=== PATIENT | female | born 1995 | race African-American/Black ===

== ENCOUNTER 2019-09-26 10:12 | Emergency (ER) | payer OTHER ==
[~2019-09-26] VITALS: Ht 165.1 cm; Wt 88.5 kg
[2019-09-26 10:17] VITALS: BP 132/78
[2019-09-26] MEDS ORDERED: HYDROcodone/APAP 5/325MG 1 TAB TABLET PO STA (10:32)
[2019-09-26] MEDS ORDERED: KETOROLAC 30 MG/ML VIAL. IM STA (10:32)
[2019-09-26] MEDS ORDERED: NEOMY/BACITR/POLYMYXIN OINT PACKET. TP STA (10:40)
--- NOTE | 2019-09-26 10:42 | PHYS DOC ---
Adult General Chief Complaint Chief Complaint: FOOT INJURY PAIN HPI HPI Patient is a 24 year old female who presents after she woke up this morning and tripped and fell down 4 concrete steps. The patient rates her pain as 8 out of 10 in severity. The patient has bilateral abrasions to her knee. Patient also states it hurts when she walks. The patient has tenderness to her left, and right knee. The patient also has tenderness in her lower right leg. Not taking any pain medicine prior to arrival. Review of Systems Review of Systems Constitutional: Denies fever or chills [] Eyes: Denies change in visual acuity, redness, or eye pain [] HENT: Denies nasal congestion or sore throat [] Respiratory: Denies cough or shortness of breath [] Cardiovascular: No additional information not addressed in HPI [] GI: Denies abdominal pain, nausea, vomiting, bloody stools or diarrhea [] : Denies dysuria or hematuria [] Musculoskeletal: Reports bilateral leg pain. Integument: Reports abrasions to bilateral knees. Neurologic: Denies headache, focal weakness or sensory changes [] Endocrine: Denies polyuria or polydipsia [] Complete systems were reviewed and found to be within normal limits, except as documented in this note. Current Medications Current Medications Current Medications Medications (Trade) Dose Ordered Sig/Cedric Start Time Stop Time Status Last Admin Dose Admin Acetaminophen/ Hydrocodone Bitart (Lortab 5/325) 1 tab 1X STAT 09/26/19 10:32 09/26/19 10:37 DC 09/26/19 11:06 1 TAB Ketorolac Tromethamine (Toradol 30mg Vial) 30 mg 1X STAT 09/26/19 10:32 09/26/19 11:11 DC 09/26/19 11:12 30 MG Neomycin/ Polymyxin/ Bacitracin (Triple Antibiotic Ointment) 1 pkt 1X STAT 09/26/19 10:40 09/26/19 10:41 DC 09/26/19 11:06 1 PKT Allergies Allergies Allergies Coded Allergies Type Severity Reaction Last Updated Verified coconut Allergy Intermediate 09/26/19 Yes Physical Exam Physical Exam Constitutional: Well developed, well nourished, no acute distress, non-toxic appearance. [] HENT: Normocephalic, atraumatic, bilateral external ears normal, oropharynx moist, no oral exudates, nose normal. [] Eyes: PERRLA, EOMI, conjunctiva normal, no discharge. [] Neck: Normal range of motion, no tenderness, supple, no stridor. [] Skin: Warm, dry, no erythema, no rash. [] Back: No tenderness, no CVA tenderness. [] Extremities: Tenderness to bilateral knees and tenderness to lower right leg, ankle, and foot diffusely. No edema. Pedal pulses are 2/4 bilateral. Neurologic: Alert and oriented X 3, normal motor function, normal sensory function, no focal deficits noted. [] Psychologic: Affect normal, judgement normal, mood normal. [] Current Patient Data Vital Signs Vital Signs Date Time Temp Pulse Resp B/P (MAP) Pulse Ox O2 Delivery O2 Flow Rate FiO2 09/26/19 11:06 17 97 Room Air 09/26/19 10:17 98.0 77 132/78 (96) 98.0 Lab Values Laboratory Tests Test 09/26/19 11:04 POC Urine HCG, Qualitative Hcg negative (Negative) EKG EKG [] Radiology/Procedures Radiology/Procedures [][facility] [address] [place] [address] IMAGING REPORT Signed PATIENT: ATIYA DUQUE ACCOUNT: [id number] : 1995 LOCATION: ER AGE: 24 SEX: F EXAM STATUS: REG ER ORD. PHYSICIAN: LORRAINE CHRISTY APRN REASON: fall down concrete steps PROCEDURE: ANKLE RIGHT 3V EXAM: 1. Bilateral knees 3 views. 2. Right tibia/fibula 2 views. 3. Right ankle 3 views. 4. Right foot 3 views. HISTORY: Fall. COMPARISON: None. FINDINGS: No fractures are appreciated at the left knee. Joint spaces and alignment are maintained. There is no joint effusion. No fractures are appreciated at the right knee. Joint spaces and alignment are maintained. There is no joint effusion. No fractures are appreciated within the right tibia/fibula, right ankle or right foot. Joint spaces and alignment are maintained. IMPRESSION: 1. No fracture or malalignment throughout. Electronically signed by: Izzy Driver MD (09/26/2019 11:22 AM) [facility] DICTATED and SIGNED BY: CARLENE DRIVER MD DATE: 09/26/19 1122 Course & Med Decision Making Course & Med Decision Making Pertinent Labs and Imaging studies reviewed. (See chart for details) Will give pain medication, imaging, and have nursing put Neosporin on and dress wounds. Imaging is negative. Will have nursing dress wounds and then will discharge. Dragon Disclaimer Dragon Disclaimer This electronic medical record was generated, in whole or in part, using a voice recognition dictation system. Departure Departure Impression: Primary Impression: Fall Disposition: 01 HOME, SELF-CARE Condition: STABLE Referrals: NO PCP (PCP) Patient Instructions: Fall Prevention and Home Safety Additional Instructions: Thank you for visiting [facility]. We appreciate you trusting us with your care. If any additional problems come up don't hesitate to return to visit us. Please follow up with your primary care provider so they can plan additional care if needed and know about the problem that you had. If symptoms worsen come back to the Emergency Department. Any concerning symptoms that start such as chest pain, shortness of air, weakness or numbness on one side of the body, running high fevers or any other concerning symptoms return to the ER. Please take 400 mg Q6 hours for inflammation x 3 days. Problem Qualifiers Primary Impression: Fall Encounter type: initial encounter Qualified Codes: W19.XXXA - Unspecified fall, initial encounter LORRAINE CHRISTY APRN Sep 26, 2019 10:42
--- NOTE | 2019-09-26 11:25 | RAD ---
EXAM: 1. Bilateral knees 3 views. 2. Right tibia/fibula 2 views. 3. Right ankle 3 views. 4. Right foot 3 views. HISTORY: Fall. COMPARISON: None. FINDINGS: No fractures are appreciated at the left knee. Joint spaces and alignment are maintained. There is no joint effusion. No fractures are appreciated at the right knee. Joint spaces and alignment are maintained. There is no joint effusion. No fractures are appreciated within the right tibia/fibula, right ankle or right foot. Joint spaces and alignment are maintained. IMPRESSION: 1. No fracture or malalignment throughout. Electronically signed by: Izzy Becerra MD (09/26/2019 11:22 AM) [facility]
--- NOTE | 2019-09-26 11:25 | RAD ---
EXAM: 1. Bilateral knees 3 views. 2. Right tibia/fibula 2 views. 3. Right ankle 3 views. 4. Right foot 3 views. HISTORY: Fall. COMPARISON: None. FINDINGS: No fractures are appreciated at the left knee. Joint spaces and alignment are maintained. There is no joint effusion. No fractures are appreciated at the right knee. Joint spaces and alignment are maintained. There is no joint effusion. No fractures are appreciated within the right tibia/fibula, right ankle or right foot. Joint spaces and alignment are maintained. IMPRESSION: 1. No fracture or malalignment throughout. Electronically signed by: Izzy Becerra MD (09/26/2019 11:22 AM) [facility]
--- NOTE | 2019-09-26 11:25 | RAD ---
EXAM: 1. Bilateral knees 3 views. 2. Right tibia/fibula 2 views. 3. Right ankle 3 views. 4. Right foot 3 views. HISTORY: Fall. COMPARISON: None. FINDINGS: No fractures are appreciated at the left knee. Joint spaces and alignment are maintained. There is no joint effusion. No fractures are appreciated at the right knee. Joint spaces and alignment are maintained. There is no joint effusion. No fractures are appreciated within the right tibia/fibula, right ankle or right foot. Joint spaces and alignment are maintained. IMPRESSION: 1. No fracture or malalignment throughout. Electronically signed by: Izzy Becerra MD (09/26/2019 11:22 AM) [facility]
== END 2019-09-26 11:56 | disposition home or self-care (01) ==
LOC: ER 10:12
DX: S80.212A Abrasion, left knee, initial encounter (principal); S80.211A Abrasion, right knee, initial encounter; M79.605 Pain in left leg; M79.604 Pain in right leg; Z91.018 Allergy to other foods; W01.0XXA Fall on same level from slipping, tripping and stumbling without subsequent striking against object, initial encounter; Y93.89 Activity, other specified; Y92.89 Other specified places as the place of occurrence of the external cause; Y99.8 Other external cause status
CPT/HCPCS: 73562; 73590; 73610; 73630; 81025; 96372; 99284; J1885